=== PATIENT | female | born 1955 | race Caucasian/White ===

== ENCOUNTER → 2022-05-14 | Outpatient (CLI) | payer MEDICARE ==
[2022-05-14 13:47] VITALS: BP 162/83; PULSE 94; RESP 16; TEMP 98.5; BMI 28.8
--- NOTE | 2022-05-14 14:37 | P.HPBAR ---
Bariatric H&P - History & Physicial H&P Date: 05/14/22 History & Physicial: Visit/CC: band f/u Patient initial contact: Initial weight: 81.193 kg Initial weight in pounds: 179.00 Height: 5 ft 6 in Initial BMI: 28.8 Last weight: Current weight: 81.193 kg Current weight in pounds: 179.00 Current BMI: 28.8 [place] body weight (based on NIH guidelines): 58.967 kg Excess body weight loss: 0.0% The patient is a 67 year-old F who presents for Bariatric Assessment. Patient presents today for bariatric follow-up. She has had LAP-BAND surgery many years ago. She's had no follow-up for over 10 years. Her current weight is 179 pounds. Patient is some minimal GERD. S Past Medical History Smoking Status: Unknown if ever smoked Surgical - Exam Vital Signs Temp Pulse Resp BP 98.5 F 94 16 162/83 05/14/22 13:44 05/14/22 13:44 05/14/22 13:44 05/14/22 13:44 - General well developed, well nourished, no distress - Eyes PERRL - ENT normal pinna - Respiratory normal expansion - Abdomen Abdomen: soft, non tender Bariatric Assessment & Plan Plan: History of LAP-BAND surgery many years ago. She'll undergo esophagram to evaluate LAP-BAND. She'll follow-up in 4 weeks. Bariatric Checklist Checklist: Plan: Checklist: EGD: 1. Hiatal hernia: 2. H. Pylori: HgbA1c: Vitamin D: Smoking: Primary care physician referral: Psychiatry clearance: Cardiology clearance: Sleep study: Diet journal: VTE risk score: VTE risk level: Rehab needs at discharge:
[2022-05-14 22:12] LABS: African American GFR (CKD) 113.1 (60.0-200.0); Albumin 4.2 g/dL (3.8-4.9); Albumin/Globulin Ratio 1.56 (1.60-3.17); Anion Gap 11.2 mmol/L (10.00-18.00); BUN/Creat Ratio 19.12 Ratio (12.00-20.00); Blood Urea Nitrogen 10.8 mg/dL (9.0-27.0); Calcium 9.5 mg/dL (8.7-10.3); Carbon Dioxide 26.7 mmol/L (20.0-27.5); Globulin 2.7 g/dL (1.6-3.3); Non-African American GFR(CKD) 97.6 (60.0-200.0); Potassium 4.8 mmol/L (3.5-5.5); Total Bilirubin 0.3 mg/dL (0.30-1.20)
[2022-05-15 08:54] LABS: HCT 36.1 % (37.2-46.3); HGB 11.6 g/dL (12.0-15.0); MCH 30.1 pg (27.0-32.0); MCHC 32.1 g/dL (32.0-37.0); MCV 93.8 fL (80.0-97.0); Mean Platelet Volume 10.2 fL (9.5-12.2); NRBC Per 100 WBC 0 /100 WBCS (0.0-0.0); Platelet Count 253 X 10*3/uL (140-440); RBC 3.85 X 10*6/uL (4.10-5.20); RDW 13.3 % (11.5-14.5); WBC 8.43 X 10*3/uL (4.50-10.00)
== END ==
LOC: BARWHC3 13:07
PROVIDERS: ATTEND Surgery
DX: Z98.84 Bariatric surgery status (principal); E66.9 Obesity, unspecified; Z68.28 Body mass index [BMI] 28.0-28.9, adult
CPT/HCPCS: 84425; 80053; 82607; 82746; 85027; 82306; 93005; G0463; 99211

== ENCOUNTER 2023-05-02 06:58 | Day surgery (SDC) | payer MEDICARE ==
[2023-05-02] MEDS ORDERED: ONDANSETRON 4 MG/2 ML VIAL IVP PRN (07:26)
[2023-05-02] MEDS ORDERED: LIDOCAINE 1% (10MG/ML) FOR IV START INTRADERMA PRN (07:26)
[2023-05-02] MEDS ORDERED: LACTATED RINGERS 1,000 ML IV SCH (07:26)
[2023-05-02 07:27] VITALS: TEMP 97.8
[2023-05-02 08:00] LABS: Glucose,Whole Blood 134 mg/dL (70-110)
[2023-05-02] MEDS ORDERED: LIDOCAINE 2% INJ 20 MG/ML (2 ML VIAL) ONE (08:07)
[2023-05-02] MEDS ORDERED: PROPOFOL 10 MG/ML 20 ML VIAL IV ONE (08:07)
--- NOTE | 2023-05-02 08:11 | P.GSHP ---
History of Present Illness H&P Date: 05/02/23 Chief Complaint: Diverticulitis Asst. 8-year-old female who's had complete diverticula is. Patient has chronic left lower quadrant pain. He presents today for colonoscopy. Past Medical History Past Medical History: Diabetes Mellitus History of Any Multi-Drug Resistant Organisms: Unobtainable Past Surgical History: Bariatric Surgery, Joint Replacement Additional Past Surgical History / Comment(s): lap band 15 years ago, left knee replacement Past Anesthesia/Blood Transfusion Reactions: Unable to Obtain Smoking Status: Unknown if ever smoked Medications and Allergies Home Medications Medication Instructions Recorded Confirmed Type Atorvastatin [Lipitor] 20 mg PO DAILY 05/02/23 05/02/23 History Fluconazole [Diflucan] 1 tab PO DAILY 05/02/23 05/02/23 History Semaglutide [Ozempic] 1 mg SQ 05/02/23 History levoFLOXacin 1 tab PO DAILY 05/02/23 05/02/23 History metroNIDAZOLE [Flagyl] 500 mg PO BID 05/02/23 05/02/23 History sitaGLIPtin PHOS/metFORMIN HCL 1 tab PO BID 05/02/23 05/02/23 History [Janumet 50-1,000 mg Tablet] Allergies Allergy/AdvReac Type Severity Reaction Status Date / Time No Known Allergies Allergy Verified 05/02/23 07:26 Surgical - Exam Vital Signs Temp Pulse Resp BP Pulse Ox 97.8 F 83 20 156/86 98 05/02/23 07:23 05/02/23 07:23 05/02/23 07:23 05/02/23 07:23 05/02/23 07:23 - General well developed, well nourished, no distress - Eyes PERRL - ENT normal pinna - Neck no masses - Respiratory normal expansion - Cardiovascular Rhythm: regular - Abdomen Abdomen: soft, non tender Results - Labs Abnormal Lab Results - Last 24 Hours (Table) 05/02/23 Range/Units 07:41 POC Glucose (mg/dL) 134 H (70-110) mg/dL Assessment and Plan Plan: Diverticulitis. We'll perform colonoscopy.
--- NOTE | 2023-05-02 08:27 | P.OP ---
Date of Procedure: 05/02/23 Preoperative Diagnosis: Diverticulitis Postoperative Diagnosis: Severe diverticulosis of sigmoid: Procedure(s) Performed: Colonoscopy Anesthesia: MAC Surgeon: Gomez Rojas Pathology: none sent Condition: stable Disposition: PACU Description of Procedure: The patient's placed on the endoscopy table in the lateral position. She received IV sedation. Digital rectal exam was performed. This revealed no abnormalities. Flexible colonoscope was then placed patient anus and passed throughout the entire colon. The ileocecal valve was visualized. The cecum, ascending and transverse colon appeared normal. The descending colon diffuse scattered diverticula. The; was extensive diverticular changes. Scope was then brought back the rectum this appeared normal. Scope withdrawn for patient.
[2023-05-02 08:53] VITALS: BP 147/78; PULSE 77; RESP 18
== END 2023-05-02 09:17 | disposition home or self-care (01) ==
LOC: ORWHC2ENDO 06:58
PROVIDERS: ATTEND Surgery
DX: K57.30 Diverticulosis of large intestine without perforation or abscess without bleeding (principal); E11.9 Type 2 diabetes mellitus without complications; Z98.890 Other specified postprocedural states; Z96.652 Presence of left artificial knee joint; Z79.899 Other long term (current) drug therapy; Z79.84 Long term (current) use of oral hypoglycemic drugs
CPT/HCPCS: 45378; J2704; J2001

== ENCOUNTER → 2023-05-15 | Outpatient (CLI) | payer MEDICARE ==
[2023-05-15 11:15] LABS: African American GFR (CKD) >90 (>60 ml/min/1.73 sqM); Blood Urea Nitrogen 11 mg/dL (7-17); Non-African American GFR(CKD) >90 (>60 ml/min/1.73 sqM)
--- NOTE | 2023-05-15 22:16 | CT ---
EXAMINATION TYPE: CT abdomen pelvis w con DATE OF EXAM: 05/15/2023 COMPARISON: NONE HISTORY: 68-year-old female K57.32, abdominal pain, possible diverticulitis. History of lap band 10+ years ago TECHNIQUE: Contiguous axial scanning of the abdomen and pelvis following administration of 100 ml Iso fidelia 300 IV contrast. Delayed images through the kidneys and coronal/sagittal reconstructions perform ed. CT DLP: 1095.90 mGycm Automated exposure control for dose reduction was used. FINDINGS: The heart is normal size without pericardial effusion. Lung bases clear without pleural eff usion. A lap band device is in place. No focal liver lesion or biliary ductal dilatation. Portal venous system is patent. Cholecystectomy c lips. Adrenal glands, kidneys, and spleen within normal limits. There is profound atrophy of the pancreatic body and tail. The pancreatic head parenchyma appears to be maintained. No obvious masses identified within the pancreas accounting for the atrophy. Further c linical correlation is recommended. No dilated small bowel, free fluid, or free air. No mesenteric or retroperitoneal lymphadenopathy. Normal appendix. There is moderate stool burden and extensive sigmoid diverticulosis. Redundant sigmo id colon but no pericolonic inflammatory change seen. There is unusual area of mesenteric soft tissue in the anterior midabdomen, axial image 34 and hatch l image 23 measuring 1.6 cm. Somewhat stellate appearance Bladder urine distended. Uterus anteverted. Neither ovary well seen, likely small postmenopausal. No abnormal fluid collection in the pelvis or pelvic lymphadenopathy. Bones: Mild degenerative change of the hips. Moderate degenerative disc disease mid to lower lumbar s pine with hypertrophic facet arthropathy and degenerative grade 1 anterolisthesis L3-L4. [facility] in the visualized lower thoracic spine. IMPRESSION: 1. REDUNDANT SIGMOID COLON WITH EXTENSIVE SIGMOID DIVERTICULOSIS. NO CONVINCING EVIDENCE OF ACUTE DIV ERTICULITIS. 2. SOME UNUSUAL, STELLATE SOFT TISSUE IN THE ANTERIOR MID ABDOMEN MEASURING 1.6 CM. SOME SCARRING AFT ER PRIOR INJURY OR INFLAMMATION IS A POSSIBILITY. SCLEROSING MESENTERITIS, DESMOID TUMOR, AND CARCINO ID TUMOR ARE SOME OTHER DIFFERENTIAL CONSIDERATIONS. 3 MONTH FOLLOW-UP CT TO REASSESS. CORRELATE WITH TUMOR MARKERS IN THE MEANWHILE. 3. COMPLETE ATROPHY OF THE PANCREATIC BODY AND TAIL BUT WITHOUT ANY EVIDENT PANCREATIC MASS. ATTENTIO N ON FOLLOW-UP.
== END | disposition home or self-care (01) ==
LOC: RADCTMAIN 10:23
PROVIDERS: ATTEND Surgery
DX: K57.32 Diverticulitis of large intestine without perforation or abscess without bleeding (principal); K57.30 Diverticulosis of large intestine without perforation or abscess without bleeding; K86.89 Other specified diseases of pancreas; J98.4 Other disorders of lung; K65.4 Sclerosing mesenteritis; Z98.84 Bariatric surgery status
CPT/HCPCS: 82565; 84520; 74177; 36415; Q9967